=== PATIENT | male | born 1970 | race Two or more races ===

== ENCOUNTER 2023-08-09 08:40 | Outpatient (CLI) | payer OTHER | END 2023-08-09 08:45 | disposition home or self-care (01) | LOC: SONOGRAMA 08:40 | PROVIDERS: ATTEND Pathology Anatomic Pathology & Clinical Pathology | DX: D11.0 Benign neoplasm of parotid gland (principal); K11.8 Other diseases of salivary glands ==

== ENCOUNTER 2023-08-15 13:34 | Emergency (ER) | payer OTHER ==
[~2023-08-15] VITALS: Ht 172.7 cm; Wt 90.7 kg
[2023-08-15] MEDS ORDERED: TRAZODONE HCL150 MG (13:45)
[2023-08-15] MEDS ORDERED: DULOXETINE HCL40 MG PO (13:45)
== END 2023-08-15 17:24 | disposition home or self-care (01) ==
LOC: ER 13:35
DX: K11.20 Sialoadenitis, unspecified (principal)